=== PATIENT | female | born 1990 | race African-American/Black ===

== ENCOUNTER 2019-09-09 06:07 | Emergency (ER) | payer OTHER ==
[~2019-09-09] VITALS: Ht 172.7 cm; Wt 127.0 kg
[~2019-09-09 06:07] MED LIST: APAP500 PO; BACTRIM DS TAB1 EACH PO; DERMOPLAST SPRA56 ML; FLAGYL500 MG PO; IBUPROFEN 600600 M1 PO; KEFLEX500 MG PO; LANOLIN56 GM; NOHOMEMEDICATIONS; PRENATAL; PYRIDIUM200 MG PO; TUCKS MEDICATE1 EAC1; ZOFRAN ODT4 MG PO
[2019-09-09] MEDS ORDERED: PENICILLIN V P500 MG PO (06:54)
[2019-09-09 07:03] VITALS: BP 118/65
== END 2019-09-09 07:03 | disposition home or self-care (01) ==
LOC: ER 06:07
DX: J02.0 Streptococcal pharyngitis (principal)